=== PATIENT | male | born 1950 | race Caucasian/White ===

== ENCOUNTER 2019-12-17 14:47 | Emergency (ER) | payer BC, MEDICARE ==
[2019-12-17] MEDS ORDERED: Sodium Chloride 0.9% 1,000 ML IV ONE (14:51)
[2019-12-17] MEDS ORDERED: Sodium Chloride 0.9% 10 ML Syringe FLUSH PRN (14:51)
[2019-12-17] MEDS ORDERED: Aspirin 325 MG Tab.EC PO ONE (14:51)
[2019-12-17] MEDS ORDERED: Clopidogrel 75 MG Tab PO ONE (14:55)
[2019-12-17] MEDS ORDERED: atorvaSTATin 80 MG Tab PO ONE (14:55)
[2019-12-17] MEDS ORDERED: Thiamine 100 MG in Sodium Chloride 0.9% 100 ML IV ONE (15:14)
[2019-12-17] MEDS ORDERED: levETIRAcetam 1,000 MG in Sodium Chloride 0.9% 100 ML IV ONE (15:30)
--- NOTE | 2019-12-17 15:58 | EDM.PDOC ---
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 He was standing next to him having a normal conversation. He really had no other symptoms at that time. This was his last known well time of 1415, when he essentially lost consciousness in front of his work body. He called the EMS right away, and Richy was breathing and had a pulse. He quickly came around within a couple of minutes without any significant head neck or other trauma. He was very confused. 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 He was not able to recall his date of . When he came to the hospital, he was a bit confused saying that he takes no medications, and losartan 50 mg was found in his truck. He otherwise has enjoyed good health except for a recent hernia surgery and he plans on having more done because he has some other hernias present. His neurologic examination was nonfocal upon arrival and his NIHSS equaled 3. Unfortunately, his CT scan showed hypo-density consistent with vasogenic edema and per radiology is suggestive of glioblastoma multiform a or other malignancy. I did consult with emergency room physician through [facility] in [place] as well as eventually the stroke neurologist who is the accepting physician at [facility] in [place], and we have all concurred that certainly he is not a candidate for TPA and we decided to hold off on aspirin as well as Plavix just to be on the safe side, and this was specifically directed this way by stroke neurology, who was kind enough to call me back after review of the CT. We also decided together to give him a gram of Keppra prior to departure. He has no history of seizures, his glucometer upon arrival was 107, he was a bit diaphoretic when he was in the CT scanner but no chest pain or shortness of breath present. ED ROS GENERAL - Review of Systems Review Of Systems: Comprehensive ROS is negative, except as noted in HPI. - Physical Exam Exam: Not Obtained Exam Limited By: No Limitations General Appearance: Alert, WD/WN, No Apparent Distress Eye Exam: Bilateral Eye: EOMI, Normal Inspection Ears: Hearing Grossly Normal Nose: Normal Inspection, Normal Mucosa Throat/Mouth: Normal Inspection, No Airway Compromise Head Exam: Atraumatic, Normocephalic Neck: Normal Inspection, Supple, Non-Tender, Full Range of Motion Respiratory/Chest: No Respiratory Distress, Lungs Clear, Normal Breath Sounds Cardiovascular: Normal Peripheral Pulses, Regular Rate, Rhythm, No Gallop, No JVD, No Murmur, No Rub GI/Abdominal: Normal Bowel Sounds, Soft, Non-Tender, Mass (right inguinal and ventral hernia) Course - Vital Signs Last Recorded V/S: Last Vital Signs Temp 98.2 F 12/17/19 14:52 Pulse 70 12/17/19 14:52 Resp 16 12/17/19 14:52 BP 144/85 H 12/17/19 14:52 Pulse Ox 97 12/17/19 14:52 - Orders/Labs/Meds Orders: Active Orders 24 hr Category Date Time Status Assess Neurological Status [RC] CONTINUOUS Care 12/17/19 14:52 Active Blood Glucose Check, Bedside [RC] STAT Care 12/17/19 14:52 Active Cardiac Monitoring [RC] CONTINUOUS Care 12/17/19 14:52 Active Communication Order [RC] STAT Care 12/17/19 14:52 Active EKG Documentation Completion [RC] ASDIRECTED Care 12/17/19 14:52 Active NIH Stroke Scale [RC] Q15M Care 12/17/19 14:52 Active NIH Stroke Scale [RC] STAT Care 12/17/19 14:52 Inactive Nursing Bedside Swallow Screen [RC] STAT Care 12/17/19 14:52 Active Oxygen Therapy, ED [RC] ASDIRECTED Care 12/17/19 14:52 Active Vital Signs [RC] Q15M Care 12/17/19 14:52 Active Head wo Cont [CT] Stat Exams 12/17/19 14:54 Taken INR,PT,PROTHROMBIN TIME [COAG] Stat Lab 12/17/19 15:13 Received PTT,PARTIAL THROMBOPLSTIN TIME [COAG] Stat Lab 12/17/19 15:13 Received Sodium Chloride 0.9% [Normal Saline] 1,000 ml Med 12/17/19 14:51 Active IV ASDIRECTED Sodium Chloride 0.9% [Saline Flush] Med 12/17/19 14:51 Active 10 ml FLUSH ASDIRECTED PRN Peripheral IV Insertion Adult [OM.PC] Stat Oth 12/17/19 14:52 Ordered Resuscitation Status Stat Resus Stat 12/17/19 14:51 Ordered EKG 12 Lead [EK] Stat Ther 12/17/19 14:52 Ordered Medication Orders Sodium Chloride (Normal Saline) 1,000 mls @ 250 drops/hr IV ASDIRECTED ONE Stop: 12/20/19 02:50 Sodium Chloride (Saline Flush) 10 ml FLUSH ASDIRECTED PRN PRN Reason: Keep Vein Open Labs: Laboratory Tests 12/17/19 12/17/19 Range/Units 15:13 15:13 WBC 7.9 (4.0-11.0) K/uL RBC 4.65 (4.50-6.50) M/uL Hgb 14.5 (13.0-18.0) g/dL Hct 43.0 (40.0-54.0) % MCV 93 (76-96) fL MCH 31.2 (27.0-32.0) pg MCHC 33.7 (31.0-35.0) g/dL RDW 12.6 (11.0-16.0) % Plt Count 218 (150-400) K/uL MPV 9.2 (6.0-10.0) fL Neut % (Auto) 49.8 (45.0-70.0) % Lymph % (Auto) 42.2 H (20.0-40.0) % [place] % (Auto) 5.4 (3.0-10.0) % Eos % (Auto) 2.5 (1.0-5.0) % Baso % (Auto) 0.1 (0.0-0.5) % Neut # (Auto) 3.92 (2.00-7.50) K/uL Lymph # (Auto) 3.33 (1.50-4.00) K/uL [place] # (Auto) 0.43 (0.20-0.80) K/uL Eos # (Auto) 0.20 (0.04-0.40) K/uL Baso # (Auto) 0.01 L (0.02-0.10) K/uL Sodium 141 (136-145) mmol/L Potassium 4.0 (3.5-5.1) mmol/L Chloride 102 (98-107) mmol/L Carbon Dioxide 23.2 (21.0-32.0) mmol/L Anion Gap 19.8 H (5.0-15.0) mmol/L BUN 16 (8-26) mg/dL Creatinine 0.97 (0.70-1.30) mg/dL Est Cr Clr Drug Dosing TNP Estimated GFR (MDRD) > 60 (>60) MLS/MIN BUN/Creatinine Ratio 16.5 (6-25) Glucose 118 H (74-100) mg/dL Calcium 9.1 (8.5-10.1) mg/dL Total Bilirubin 0.3 (0.0-1.0) mg/dL AST 19 (15-37) U/L ALT 34 (12-78) U/L Alkaline Phosphatase 73 (46-116) U/L Troponin I < 0.017 (0.000-0.060) ng/mL Total Protein 7.5 (6.4-8.2) g/dL Albumin 4.1 (3.4-5.0) g/dL Globulin 3.4 (2.2-4.2) g/dL Albumin/Globulin Ratio 1.2 (0.8-2.0) Meds: Medications Generic Name Dose Route Start Last Admin Trade Name Freq PRN Reason Stop Dose Admin Sodium Chloride 1,000 mls @ 250 drops/hr 12/17/19 14:51 Normal Saline IV 12/20/19 02:50 ASDIRECTED ONE Sodium Chloride 10 ml 12/17/19 14:51 Saline Flush FLUSH ASDIRECTED PRN Keep Vein Open Discontinued Medications Generic Name Dose Route Start Last Admin Trade Name Freq PRN Reason Stop Dose Admin Aspirin 162 mg 12/17/19 14:51 Ecotrin PO 12/17/19 14:52 ONETIME ONE Atorvastatin Calcium 80 mg 12/17/19 14:55 Lipitor PO 12/17/19 14:56 ONETIME ONE Clopidogrel Bisulfate 75 mg 12/17/19 14:55 Plavix PO 12/17/19 14:56 ONETIME ONE Thiamine HCl 100 mg/ Sodium 101 mls @ 202 mls/hr 12/17/19 15:14 Chloride IV 12/17/19 15:15 ONETIME ONE Levetiracetam 1,000 mg/ Sodium 110 mls @ 400 mls/hr 12/17/19 15:30 Chloride IV 12/17/19 15:44 ONETIME ONE Departure - Departure Time of Disposition: 16:00 Disposition: DC/Tfer to Acute Hospital 02 Condition: Fair Clinical Impression: Altered mental status Qualifiers: Altered mental status type: unspecified Qualified Code(s): R41.82 - Altered mental status, unspecified - Discharge Information Referrals: PCP,None [Primary Care Provider] - Sepsis Event Note - Focused Exam Vital Signs: Vital Signs Temp Pulse Resp BP Pulse Ox 12/17/19 14:52 98.2 F 70 16 144/85 H 97 Date Exam was Performed: 12/17/19 Time Exam was Performed: 15:51 - My Orders Last 24 Hours: My Active Orders 12/17/19 14:51 Sodium Chloride 0.9% [Normal Saline] 1,000 ml IV ASDIRECTED Sodium Chloride 0.9% [Saline Flush] 10 ml FLUSH ASDIRECTED PRN Resuscitation Status Stat 12/17/19 14:52 Assess Neurological Status [RC] CONTINUOUS Blood Glucose Check, Bedside [RC] STAT Cardiac Monitoring [RC] CONTINUOUS Communication Order [RC] STAT EKG Documentation Completion [RC] ASDIRECTED NIH Stroke Scale [RC] Q15M NIH Stroke Scale [RC] STAT Nursing Bedside Swallow Screen [RC] STAT Oxygen Therapy, ED [RC] ASDIRECTED Vital Signs [RC] Q15M Peripheral IV Insertion Adult [OM.PC] Stat EKG 12 Lead [EK] Stat 12/17/19 14:54 Head wo Cont [CT] Stat 12/17/19 15:13 INR,PT,PROTHROMBIN TIME [COAG] Stat PTT,PARTIAL THROMBOPLSTIN TIME [COAG] Stat - Assessment/Plan Last 24 Hours: My Active Orders 12/17/19 14:51 Sodium Chloride 0.9% [Normal Saline] 1,000 ml IV ASDIRECTED Sodium Chloride 0.9% [Saline Flush] 10 ml FLUSH ASDIRECTED PRN Resuscitation Status Stat 12/17/19 14:52 Assess Neurological Status [RC] CONTINUOUS Blood Glucose Check, Bedside [RC] STAT Cardiac Monitoring [RC] CONTINUOUS Communication Order [RC] STAT EKG Documentation Completion [RC] ASDIRECTED NIH Stroke Scale [RC] Q15M NIH Stroke Scale [RC] STAT Nursing Bedside Swallow Screen [RC] STAT Oxygen Therapy, ED [RC] ASDIRECTED Vital Signs [RC] Q15M Peripheral IV Insertion Adult [OM.PC] Stat EKG 12 Lead [EK] Stat 12/17/19 14:54 Head wo Cont [CT] Stat 12/17/19 15:13 INR,PT,PROTHROMBIN TIME [COAG] Stat PTT,PARTIAL THROMBOPLSTIN TIME [COAG] Stat
[2019-12-17] MEDS ORDERED: LORazepam 2 MG/ML SDV ONE (16:58)
[2019-12-17] MEDS ORDERED: fentaNYL 100 MCG/2 ML SDV ONE (16:59)
[2019-12-17] MEDS ORDERED: Ondansetron 4 MG/2 ML SDV ONE (17:03)
--- NOTE | 2019-12-17 20:14 | CT ---
CLINICAL DATA: Syncope. UNENHANCED BRAIN CT, 17 DEC 2019: Multislice acquisition through the brain without IV contrast was performed. No priors. There is a 3.5 cm mass-like density in the right frontal region peripherally lateral to the interhemispheric fissure. There is extensive adjacent vasogenic edema adjacent to this. There is mass effect with slight shift of the midline structures to the left and effacement of the frontal horn of the right lateral ventricle. This is suspicious for a tumor with adjacent edema. No intracranial hemorrhage. Exam is not suspicious for an infarct. No other abnormalities. 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 The patient's physician was notified of the findings by telephone and by [facility] preliminary radiology report. Job: [id number] [facility]
== END 2019-12-17 17:13 ==
LOC: LB.ED 14:47
DX: R41.82 Altered mental status, unspecified (principal)
CPT/HCPCS: 36415; 70450; 80053; 84484; 85025; 85610; 85730; 93005; 96361; 96365; 99285; A9270; J1953; J3411; J7040; J7050; A0425; A0429